=== PATIENT | female | born 2000 | race Two or more races ===

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

== ENCOUNTER 2021-02-05 19:58 | Emergency (ER) | payer SELFPAY ==
[~2021-02-05] VITALS: Ht 162.6 cm; Wt 59.0 kg
[~2021-02-05 19:58] MED LIST: SULF1TAB24 PO
[2021-02-05 20:29] LABS: BILIRUBIN,URINE NEGATIVE (NEG); CLARITY,URINE CLEAR; COLOR,URINE YELLOW; NITRITE,URINE NEGATIVE (NEG); PH,URINE 6.5 (<5.0-8.0); PROTEIN,URINE NEGATIVE (NEG-TRACE)
[2021-02-05 20:36] LABS: BACTERIA,URINE FEW /HPF (0-FEW)
--- NOTE | 2021-02-05 23:52 | RAD ---
EXAM: ULTRASOUND PELVIS INDICATION: Reason: VAGINAL BLEEDING / Spl. Instructions: / History: . COMPARISON: None available. TECHNIQUE: Transabdominal and transvaginal sonography was performed. FINDINGS: Uterus measures 6.5 x 5.4 x 3.8 cm. Endometrium is 4 mm in thickness. Right ovary measures 2.3 x 2.5 x 0.8 cm. Left ovary measures 3.0 x 2.0 x 1.4 cm. Vascular flow identified in the ovaries bilaterally. No free fluid identified in the pelvis. IMPRESSION: Normal sonographic appearance of the uterus and ovaries. No abnormal endometrial thickening. Electronically signed by: Remington Merritt MD (02/05/2021 11:50 PM) [facility]
[2021-02-06 00:11] VITALS: BP 114/68
--- NOTE | 2021-02-06 00:25 | RAD ---
Exam: Pelvis 1 view INDICATION: Vaginal bleeding TECHNIQUE: Frontal view of the pelvis Comparisons: None FINDINGS: Bone mineralization is normal. No acute or healed fractures. Soft tissues are unremarkable. Joint spa ankit are well-maintained. IMPRESSION: No acute osseous abnormality. Electronically signed by: Remington Merritt MD (02/06/2021 12:23 AM) [facility]
--- NOTE | 2021-02-06 00:27 | ED.ADGEN ---
Past Medical History Past Medical History: No Pertinent History Past Surgical History: No Surgical History Smoking Status: Never Smoker Alcohol Use: None Drug Use: None General Adult EDM: Chief Complaint: VAGINAL BLEEDING HPI: HPI: Patient is a 20 year old female coming in for vaginal bleeding for the past few days. Patient that she is passed occasional clots. Had an at home test that was "faintly" positive 1.5 weeks ago. LMP 2 months ago. Has not had any abdominal pain or cramping right now, had some few days ago. Denies any systemic complaints. Review of Systems: Review of Systems: All other systems within normal limits except for as noted in the HPI Allergies: Allergies: Allergies Coded Allergies Type Severity Reaction Last Updated Verified No Known Drug Allergies 10/18/16 No Physical Exam: PE: Constitutional: Well developed, well nourished, no acute distress, non-toxic appearance. [] HENT: Normocephalic, atraumatic, bilateral external ears normal, nose normal. [] Eyes: PERRLA, conjunctiva normal, no discharge. [] Neck: No rigidity, supple, no stridor. [] Cardiovascular: Regular rate and rhythm, brisk cap refill [] Lungs & Thorax: Non labored symmetric respirations, no tachypnea or respiratory distress [] Abdomen: Soft, nondistended. Skin: Warm, dry, no erythema, no rash. [] Back: Unremarkable Extremities: No deformities, range of motion grossly intact, no lower extremity edema [] Neurologic: Alert and oriented X 3, no focal deficits noted. [] Psychologic: Affect normal, judgement normal, mood normal. [] Current Patient Data: Labs: Laboratory Tests Test 02/05/21 20:10 02/05/21 20:12 02/05/21 21:40 Urine Collection Type Unknown Urine Color Yellow Urine Clarity Clear Urine pH 6.5 (<5.0-8.0) Urine Specific [place] 1.025 (1.000-1.030) Urine Protein Negative mg/dL (NEG-TRACE) Urine Glucose (UA) Negative mg/dL (NEG) Urine Ketones (Stick) Negative mg/dL (NEG) Urine Blood Moderate (NEG) Urine Nitrite Negative (NEG) Urine Bilirubin Negative (NEG) Urine Urobilinogen Dipstick 1.0 mg/dL (0.2 mg/dL) Urine Leukocyte Esterase Negative (NEG) Urine RBC 11-20 /HPF (0-2) Urine WBC 1-4 /HPF (0-4) Urine Squamous Epithelial Cells Few /LPF Urine Bacteria Few /HPF (0-FEW) Urine Mucus Mod /LPF POC Urine HCG, Qualitative Hcg negative (Negative) Maternal Serum HCG Beta Subunit < 1 mIU/mL (0-5) Vital Signs: Vital Signs Date Time Temp Pulse Resp B/P (MAP) Pulse Ox O2 Delivery O2 Flow Rate FiO2 02/06/21 00:11 69 18 114/68 (83) 100 Room Air 02/05/21 21:08 98.1 98.1 EKG: EKG: [] Heart Score: C/O Chest Pain: No Risk Factors: Risk Factors: DM, Current or recent (<one month) smoker, HTN, HLP, family history of CAD, obesity. Risk Scores: Score 0 - 3: 2.5% MACE over next 6 weeks - Discharge Home Score 4 - 6: 20.3% MACE over next 6 weeks - Admit for Clinical Observation Score 7 - 10: 72.7% MACE over next 6 weeks - Early Invasive Strategies Radiology/Procedures: Radiology/Procedures: [facility] [address] [place] [address] IMAGING REPORT Signed PATIENT: HIEU JOHNSON ACCOUNT: [id number] : 2000 LOCATION: ER AGE: 20 SEX: F EXAM STATUS: REG ER ORD. PHYSICIAN: SUHAS ROLLINS MD REASON: VAGINAL BLEEDING PROCEDURE: PELVIS W/TV EXAM: ULTRASOUND PELVIS INDICATION: Reason: VAGINAL BLEEDING / Spl. Instructions: / History: . COMPARISON: None available. TECHNIQUE: Transabdominal and transvaginal sonography was performed. FINDINGS: Uterus measures 6.5 x 5.4 x 3.8 cm. Endometrium is 4 mm in thickness. Right ovary measures 2.3 x 2.5 x 0.8 cm. Left ovary measures 3.0 x 2.0 x 1.4 cm. Vascular flow identified in the ovaries bilaterally. No free fluid identified in the pelvis. IMPRESSION: Normal sonographic appearance of the uterus and ovaries. No abnormal endometrial thickening. Electronically signed by: Remington Torres MD (02/05/2021 11:50 PM) [employer] DICTATED and SIGNED BY: REMINGTON TORRES MD DATE: 02/05/21 [id number] [] Course & Med Decision Making: Course & Med Decision Making Pertinent Labs and Imaging studies reviewed. (See chart for details) [] Dragon Disclaimer: Dragon Disclaimer: This electronic medical record was generated, in whole or in part, using a voice recognition dictation system. Departure Departure Impression: Primary Impression: Miscarriage Disposition: 01 HOME / SELF CARE / HOMELESS Condition: STABLE Referrals: NO PCP (PCP) SHEELA CHAVES Jr, MD Patient Instructions: Miscarriage SUHAS ROLLINS MD Feb 06, 2021 00:26
== END 2021-02-06 00:40 | disposition home or self-care (01) ==
LOC: ER 19:58
DX: O03.9 Complete or unspecified spontaneous abortion without complication (principal)
CPT/HCPCS: 36415; 72170; 76830; 76856; 81001; 81025; 84702; 86900; 86901; 96372; 99285